=== PATIENT | female | born 1970 | race Caucasian/White ===

== ENCOUNTER 2022-02-26 10:47 | Outpatient (CLI) | payer OTHER, SELFPAY ==
[2022-02-26 21:40] LABS: Albumin* 4.5 g/dL (3.3-5.0)
[2022-02-26 21:41] LABS: Chloride* 104 mmol/L (96-114); Potassium* 5.1 mmol/L (3.6-5.1); Sodium* 139 mmol/L (135-149)
[2022-02-26 21:43] LABS: Aspartate Amino Transferase* 25 U/L (12-35); Bilirubin Total* 0.5 mg/dL (0.1-1.5); Carbon Dioxide* 27 mmol/L (20-32); Cholesterol* 241 mg/dL (90-199); Creatinine* 0.7 mg/dL (0.5-1.5); Estimated Glomerular Filt Rate 105 ml/min; Total Protein* 7.9 g/dL (6.0-8.3)
[2022-02-26 21:44] LABS: Alanine Aminotransferase* 14 U/L (4-35); Alkaline Phosphatase* 118 U/L (40-150); Blood Urea Nitrogen* 14 mg/dL (7-30); Calcium* 9.6 mg/dL (8.4-10.6); Glucose* 100 mg/dL (60-115); HDL Cholesterol* 84 mg/dL (>=50); LDL Cholesterol Calculated 144 mg/dL (<100); Triglycerides* 64 mg/dL (40-149)
== END 2022-02-26 10:48 | disposition home or self-care (01) ==
PROVIDERS: PCP Emergency Medicine; Visit Provider Emergency Medicine
DX: Z00.00 Encounter for general adult medical examination without abnormal findings (principal); E03.9 Hypothyroidism, unspecified; I10 Essential (primary) hypertension; R03.0 Elevated blood-pressure reading, without diagnosis of hypertension; Z13.6 Encounter for screening for cardiovascular disorders
CPT/HCPCS: 80053; 80061; 84443

== ENCOUNTER 2022-04-28 15:23 | Outpatient (CLI) | payer OTHER, SELFPAY ==
--- NOTE | 2022-04-28 15:40 | CRLHL7_ITS ---
For Patients: As a result of the Cures Act, medical imaging exams and procedure reports are released immediately into your electronic medical record. You may view this report before your referring provider. If you have questions, please contact your health care provider. BILATERAL SCREENING MAMMOGRAM WITH COMPUTER-AIDED DETECTION AND TOMOSYNTHESIS, 04/28/2022 TECHNIQUE: CC and MLO views were obtained. These mammographic images have been obtained using full-field digital technique. These mammographic images were interpreted with the benefit of computer-aided detection. Breast tomosynthesis was used in this interpretation. COMPARISON FILM: 03/05/2020, 06/08/2018, 03/13/2016. FINDINGS: The breasts are heterogeneously dense, which may obscure small masses. IMPRESSION: There is no radiographic evidence for malignancy. ASSESSMENT: BI-RADS Category 1: Negative RECOMMENDATION: Routine screening mammogram in 1 year. A lay language report of this examination will be provided to the patient. NEAL HAWK M.D. Diagnostic Radiologist [email or web address] Transcribed: 2:[address]/Dictated by: Neal Hawk MD @ 04/29/2022 9:13:00 AM (Electronically Signed)
== END 2022-04-28 15:24 | disposition home or self-care (01) ==
LOC: MAMMO 15:23
PROVIDERS: PCP Emergency Medicine; Visit Provider Emergency Medicine
DX: Z12.31 Encounter for screening mammogram for malignant neoplasm of breast (principal); R92.2 Inconclusive mammogram
CPT/HCPCS: 77063; 77067

== ENCOUNTER 2023-03-25 13:56 | Outpatient (CLI) | payer OTHER, SELFPAY | END 2023-03-25 13:57 | disposition home or self-care (01) | PROVIDERS: PCP Emergency Medicine; Visit Provider Emergency Medicine | DX: M25.50 Pain in unspecified joint (principal); R73.03 Prediabetes; E03.9 Hypothyroidism, unspecified; E78.5 Hyperlipidemia, unspecified; I10 Essential (primary) hypertension; R03.0 Elevated blood-pressure reading, without diagnosis of hypertension | CPT/HCPCS: 80053; 82550; 84443; 86140; 86200; 86431; 86618 ==

== ENCOUNTER 2023-04-01 08:35 | Outpatient (CLI) | payer OTHER, SELFPAY | END 2023-04-01 08:36 | disposition home or self-care (01) | PROVIDERS: PCP Emergency Medicine; Visit Provider Emergency Medicine | DX: Z00.00 Encounter for general adult medical examination without abnormal findings (principal); E78.5 Hyperlipidemia, unspecified; R73.03 Prediabetes | CPT/HCPCS: 80061; 82947 ==

== ENCOUNTER 2023-07-13 14:46 | Outpatient (CLI) | payer OTHER, SELFPAY ==
--- NOTE | 2023-07-13 15:20 | CRLHL7_ITS ---
For Patients: As a result of the Century Cures Act, medical imaging exams and procedure reports are released immediately into your electronic medical record. You may view this report before your referring provider. If you have questions, please contact your health care provider. BILATERAL SCREENING MAMMOGRAM WITH COMPUTER-AIDED DETECTION AND TOMOSYNTHESIS TECHNIQUE: CC and MLO views were obtained. These mammographic images have been obtained using full-field digital technique. These mammographic images were interpreted with the benefit of computer-aided detection. Breast Tomosynthesis was used in this interpretation. COMPARISON FILM: 04/28/22, 03/05/20, 06/08/18. FINDINGS: The breasts are heterogeneously dense, which may obscure small masses IMPRESSION: There is no radiographic evidence for malignancy. ASSESSMENT: BI-RADS Category 2: Benign RECOMMENDATION: Routine screening mammogram in 1 year. A lay language report of this examination will be provided to the patient. Neal Lizarraga M.D. Diagnostic Radiologist [email or web address] / be/Dictated by: Neal Lizarraga MD @ 07/14/2023 11:16:00 AM (Electronically Signed)
== END 2023-07-13 14:47 | disposition home or self-care (01) ==
LOC: MAMMO 14:49
PROVIDERS: PCP Emergency Medicine; Visit Provider Emergency Medicine
DX: Z12.31 Encounter for screening mammogram for malignant neoplasm of breast (principal); R92.2 Inconclusive mammogram
CPT/HCPCS: 77063; 77067

== ENCOUNTER 2023-12-28 13:40 | Outpatient (CLI) | payer OTHER, SELFPAY | END 2023-12-28 13:41 | disposition home or self-care (01) | LOC: LKVREF 13:41 | PROVIDERS: PCP Emergency Medicine; Visit Provider Emergency Medicine | DX: R63.5 Abnormal weight gain (principal); Z13.29 Encounter for screening for other suspected endocrine disorder | CPT/HCPCS: 84439; 84443 ==

== ENCOUNTER 2024-05-05 08:23 | Outpatient (CLI) | payer OTHER, SELFPAY | END 2024-05-05 08:24 | disposition home or self-care (01) | LOC: NFLDREF 05-07 17:24 | PROVIDERS: PCP Emergency Medicine; Referring Provider Emergency Medicine; Visit Provider Emergency Medicine | DX: I10 Essential (primary) hypertension (principal); E78.5 Hyperlipidemia, unspecified; E03.9 Hypothyroidism, unspecified | CPT/HCPCS: 80048; 80061; 84443 ==

== ENCOUNTER 2024-06-01 13:38 | Outpatient (CLI) | payer OTHER, SELFPAY ==
--- NOTE | 2024-06-01 13:56 | W.PM.STED ---
Stress Test Note Date Date Seen: 06/01/24 Date of test: 06/01/24 Providers Primary care provider: Geri Agarwal Stress test physician: Mary Jane Westfall Stress Test Note Stress test ordered: Stress Echo Indication for test: Elevated calcium score Stress test medicine: Definity Results discussion: Resting EKG: sinus rhythm, 81 beats per minute. Nonspecific ST segment changes, no infarct. Resting blood pressure: 145/85 Stress test: Patient is consented on stress test ordered and agrees to proceed. Patient is exercised on the treadmill following standard Kuldeep protocol. patient exercise to 8 minute 17 seconds, stopping due to reaching exercise tolerance. She had no chest pain. She had some shortness of breath at the end of activity but would not be out of character for the level of exercise. Her exercise level was equivalent to 9.9 Mets. She had a maximum heart rate of 157 beats per minute which was 110% of a calculated target heart rate of 142. She had a maximal blood pressure during exercise of 156/86. Rate pressure product was 24,336. No arrhythmia, about [address] segment depression noted in inferior and lateral precordial leads which could be suggestive of ischemic disease. Need to couple with echo images to ensure that this is not false-positive. Patient did not exhibit any chest pain or concerning symptoms during the stress test. Await echo images to couple this for a full formal diagnostic. Impression: Subjectively negative, objectively possibly positive EKG changes suggestive of ischemia. If echo is negative for ischemia, EKG is likely false positive. Follow up suggested: Patient was discharged from here in stable condition, was asymptomatic. Will await the echo images to couple this for a full formal diagnostic. She is aware that her primary provider will get the full formal report.
[2024-06-01] MEDS: PERFLUTREN LIPID MICROSPHERES 2 ML VIAL IVP (14:28)
[2024-06-01 14:51] VITALS: BP 150/86; RESP 16
== END 2024-06-01 14:52 | disposition home or self-care (01) ==
LOC: STRESS 13:39
PROVIDERS: PCP Emergency Medicine; Visit Provider Emergency Medicine
DX: R93.1 Abnormal findings on diagnostic imaging of heart and coronary circulation (principal); Z82.49 Family history of ischemic heart disease and other diseases of the circulatory system
CPT/HCPCS: 93016; 93325; 93351; Q9957

== ENCOUNTER 2024-08-16 08:08 | Outpatient (CLI) | payer BC, SELFPAY | END 2024-08-16 08:09 | disposition home or self-care (01) | LOC: NFLDREF 08-23 00:43 | PROVIDERS: PCP Emergency Medicine; Referring Provider Emergency Medicine; Visit Provider Emergency Medicine | DX: E78.2 Mixed hyperlipidemia (principal) | CPT/HCPCS: 80061 ==

== ENCOUNTER 2024-09-28 13:12 | Outpatient (CLI) | payer BC, SELFPAY ==
--- NOTE | 2024-09-28 13:20 | CRLHL7_ITS ---
For Patients: As a result of the Century Cures Act, medical imaging exams and procedure reports are released immediately into your electronic medical record. You may view this report before your referring provider. If you have questions, please contact your health care provider. BILATERAL SCREENING MAMMOGRAM WITH COMPUTER-AIDED DETECTION AND TOMOSYNTHESIS TECHNIQUE: CC and MLO views were obtained. These mammographic images have been obtained using full-field digital technique. These mammographic images were interpreted with the benefit of computer-aided detection. Breast Tomosynthesis was used in this interpretation. COMPARISON FILM: 07/13/23, 04/28/2022, 03/05/20. FINDINGS: There are scattered areas of fibroglandular density. IMPRESSION: There is no radiographic evidence for malignancy. ASSESSMENT: BI-RADS Category 1: Negative RECOMMENDATION: Routine screening mammogram in 1 year. A lay language report of this examination will be provided to the patient. Neal Lizarraga M.D. Diagnostic Radiologist [email or web address] SP/Dictated by: Neal Lizarraga MD @ 10/02/2024 11:35:00 AM (Electronically Signed)
== END 2024-09-28 13:13 | disposition home or self-care (01) ==
LOC: MAMMO 13:13
PROVIDERS: PCP Emergency Medicine; Visit Provider Emergency Medicine
DX: Z12.31 Encounter for screening mammogram for malignant neoplasm of breast (principal)
CPT/HCPCS: 77063; 77067

== ENCOUNTER 2025-05-16 10:43 | Outpatient (CLI) | payer BC, SELFPAY | END 2025-05-16 10:44 | disposition home or self-care (01) | PROVIDERS: Visit Provider Physician Assistant Medical | DX: Z00.00 Encounter for general adult medical examination without abnormal findings (principal) | CPT/HCPCS: 80053; 84439; 84443 ==